=== PATIENT | male | born 1975 | race Caucasian/White ===

== ENCOUNTER → 2017-01-31 | Outpatient (CLI) | payer BC ==
[~2017-01-31] MED LIST: ATARAX25 MG PO; BACTRIM DS 8001 TA1 PO; CATAFLAM50 MG PO; CIPRO500 MG PO; CIPROFLOXACIN500 MG PO; CLARITIN10 MG PO; CORDROL20 MG PO; COUMADIN5 M2 PO; DAYPRO600 M1 PO; DELTASONE20 MG PO; DIAZEPAM2 MG PO; FLEXERIL5 MG PO; HYDROCODONE BIT1 T11 PO; KEFLEX500 MG PO; Lortab 5/500 501 TAB PO; MEDROL DOSEPAK4 MG PO; MOTRIN800 MG PO; PREDNICOT20 MG PO; PREDNISONE20 MG PO; PROTONIX TR40 M1 PO; ROBAXIN750 MG PO; SKELAXIN800 MG PO; TRAMADOL HCL50 MG PO; VICODIN 5/500 505 MG PO; VICODIN 500 MG-1 TAB PO; VOLTAREN50 M1 PO
== END | disposition home or self-care (01) ==
LOC: US 16:37
DX: M54.2 Cervicalgia (principal)

== ENCOUNTER 2017-03-08 12:24 | Emergency (ER) | payer BC ==
[~2017-03-08] VITALS: Ht 175.2 cm; Wt 95.3 kg
[2017-03-08] MEDS ORDERED: FLONASE ALLERG9.9 ML NAS (13:33)
[2017-03-08] MEDS ORDERED: PREDNISONE10 MG PO (13:33)
[2017-03-08] MEDS ORDERED: CLARITIN10 MG PO (13:33)
== END 2017-03-08 14:39 | disposition home or self-care (01) ==
LOC: ED 12:24
DX: J02.9 Acute pharyngitis, unspecified (principal); R03.0 Elevated blood-pressure reading, without diagnosis of hypertension; Z88.0 Allergy status to penicillin; Z79.899 Other long term (current) drug therapy

== ENCOUNTER → 2017-05-16 | Outpatient (CLI) | payer BC ==
[~2017-05-16] MED LIST changes: +FLONASE ALLERG9.9 ML NAS; +PREDNISONE10 MG PO
== END | disposition home or self-care (01) ==
LOC: RAD 07:50
DX: K21.9 Gastro-esophageal reflux disease without esophagitis (principal); R13.10 Dysphagia, unspecified

== ENCOUNTER → 2018-04-07 | Outpatient (CLI) | payer BC ==
[2018-04-07 10:52] LABS: HEMATOCRIT 49.6 % (42.0-52.0); HEMOGLOBIN 16.9 g/dl (14.0-18.0); MEAN CELL VOLUME 88.7 fl (80.0-94.0); MEAN CORPUSCULAR HGB 30.2 pg (27.0-31.0); MEAN CORPUSCULAR HGB CONC 34.1 g/dl (33.0-37.0); MEAN PLATELET VOLUME 9.5 fl (9.6-12.3); RED BLOOD COUNT 5.59 10*6/uL (4.50-5.90); RED CELL DISTRI WIDTH 12.5 % (0-14.5); WHITE BLOOD COUNT 5.5 10*3/uL (4.8-10.8)
[2018-04-07 11:21] LABS: ALBUMIN 4.1 gm/dl (3.1-4.5); ALKALINE PHOSPHATASE 70 U/L (45-117); BUN 10 mg/dl (7-24); CHLORIDE 106 mmol/L (98-107); CHOLESTEROL 160 mg/dL (<200); CREATININE 1.22 mg/dL (0.70-1.30); HDL CHOLESTEROL 45 mg/dl (40-60); LDL CHOLESTEROL 100 mg/dL (9-159); POTASSIUM 4.2 mmol/L (3.5-5.1); SGOT/AST 21 IU/L (3-35); SGPT/ALT 52 U/L (12-78); SODIUM 142 mmol/L (136-145); TOTAL PROTEIN 7.8 gm/dL (6.4-8.2); TRIGLYCERIDES 75 mg/dl (<150); VLDL CHOLESTEROL 15 mg/dL (6-40)
== END | disposition home or self-care (01) ==
LOC: LAB 10:29
PROVIDERS: Family Medicine
DX: E55.9 Vitamin D deficiency, unspecified (principal); E78.00 Pure hypercholesterolemia, unspecified; K62.5 Hemorrhage of anus and rectum; I82.409 Acute embolism and thrombosis of unspecified deep veins of unspecified lower extremity

== ENCOUNTER → 2018-04-16 | Outpatient (CLI) | payer BC ==
[2018-04-16 16:13] LABS: BILIRUBIN, DIRECT 0.2 mg/dL (0.0-0.2)
== END | disposition home or self-care (01) ==
LOC: LAB 15:05
PROVIDERS: Family Medicine
DX: E80.4 Gilbert syndrome (principal)

== ENCOUNTER → 2018-04-21 | Outpatient (CLI) | payer BC | END | disposition home or self-care (01) | LOC: LAB 15:04 | DX: R19.7 Diarrhea, unspecified (principal) ==

== ENCOUNTER 2018-05-28 17:07 | Emergency (ER) | payer BC ==
[~2018-05-28] VITALS: Ht 175.2 cm; Wt 99.8 kg
--- NOTE | ~2018-05-28 | EKG ---
[place], [place] ELECTROCARDIOGRAM REPORT NAME: BEA MORILLO UNIT #: [id number] ROOM: DOCTOR: EPIPHANY DRAFT REPORT BIRTHDATE: [birth year] [facility] Test Date: 2018-05-28 Test Time: 17:29:58 Pat Name: BEA MORILLO Department: Room: Gender: [employer]: Joann Mooney : 1975 Requested By: ELENI RAUSCH DNP Order Number: [id number] Reading MD: Romel Alvarez MD Measurements Intervals [place] Rate: 72 P: 17 [place]: 178 QRS: 49 QRSD: 107 T: 17 QT: 394 QTc: 432 Interpretive Statements Sinus rhythm RSR' in V1 or V2, right VCD or RVH Baseline wander in lead(s) V4 No previous ECG available for comparison Electronically Signed On 05-31-2018 4:40:58 PST by Romel Alvarez MD CM:EKGRPT:ELECTROCARDIOGRAM REPORT [id number] ELENI ALVAREZ DRAFT REPORT ELENI RAUSCH DNP
[2018-05-28] MEDS ORDERED: CYCLOBENZAPRINE10 MG PO (19:10)
== END 2018-05-28 19:21 | disposition home or self-care (01) ==
LOC: ED 17:07
DX: M25.512 Pain in left shoulder (principal); M62.838 Other muscle spasm; Z79.899 Other long term (current) drug therapy; Z88.0 Allergy status to penicillin; Z79.01 Long term (current) use of anticoagulants; Z86.718 Personal history of other venous thrombosis and embolism

== ENCOUNTER 2019-01-17 09:49 | Emergency (ER) | payer BC ==
[~2019-01-17] VITALS: Ht 175.2 cm; Wt 104.3 kg
[~2019-01-17 09:49] MED LIST changes: +CYCLOBENZAPRINE10 MG PO
== END 2019-01-17 12:02 | disposition home or self-care (01) ==
LOC: ED 09:49
DX: S90.31XA Contusion of right foot, initial encounter (principal); Z88.0 Allergy status to penicillin; Z79.01 Long term (current) use of anticoagulants; W11.XXXA Fall on and from ladder, initial encounter; Y93.39 Activity, other involving climbing, rappelling and jumping off; Y92.89 Other specified places as the place of occurrence of the external cause; Y99.8 Other external cause status

== ENCOUNTER 2019-05-04 06:44 | Emergency (ER) | payer BC ==
[~2019-05-04] VITALS: Ht 175.2 cm; Wt 104.3 kg
[2019-05-04] MEDS ORDERED: LISINOPRIL2.5 MG PO (07:29)
[2019-05-04 08:55] LABS: BILIRUBIN NEGATIVE (NEGATIVE); BLOOD 1+ (NEGATIVE); CLARITY SL CLOUDY (CLEAR); COLOR YELLOW (YELLOW); GLUCOSE NEGATIVE (NEGATIVE); KETONE 2+ (NEGATIVE); LEUKO ESTERASE NEGATIVE (NEGATIVE); NITRITE NEGATIVE (NEGATIVE); UROBILINOGEN 0.2 E.U./dl (0.2-1.0)
[2019-05-04 09:15] LABS: BACTERIA TRACE; URIC ACID CRYSTALS 1+
[2019-05-04] MEDS ORDERED: KETOROLAC10 MG PO (09:52)
[2019-05-04] MEDS ORDERED: ALLOPURINOL300 MG PO (09:52)
== END 2019-05-04 10:01 | disposition home or self-care (01) ==
LOC: ED 06:44
PROVIDERS: Emergency Medicine
DX: N20.0 Calculus of kidney (principal); J45.909 Unspecified asthma, uncomplicated; Z87.442 Personal history of urinary calculi; Z86.718 Personal history of other venous thrombosis and embolism; Z88.0 Allergy status to penicillin; Z79.01 Long term (current) use of anticoagulants; Z79.899 Other long term (current) drug therapy

== ENCOUNTER → 2020-02-10 | Outpatient (CLI) | payer BC ==
[~2020-02-10] MED LIST changes: +ALLOPURINOL300 MG PO; +KETOROLAC10 MG PO; +LISINOPRIL2.5 MG PO
[2020-02-10 16:10] LABS: HEMATOCRIT 47.3 % (42.0-52.0); MEAN CELL VOLUME 87.9 fl (80.0-94.0); MEAN CORPUSCULAR HGB 29.4 pg (27.0-31.0); MEAN CORPUSCULAR HGB CONC 33.4 g/dl (33.0-37.0); MEAN PLATELET VOLUME 9.6 fl (9.6-12.3); RED BLOOD COUNT 5.38 10*6/uL (4.50-5.90); RED CELL DISTRI WIDTH 12.8 % (0-14.5); WHITE BLOOD COUNT 6.6 10*3/uL (4.8-10.8)
[2020-02-10 16:31] LABS: ALBUMIN 4.2 gm/dl (3.1-4.5); BUN 9 mg/dl (7-24); CHLORIDE 110 mmol/L (98-107); CHOLESTEROL 190 mg/dL (<200); CREATININE 1.09 mg/dL (0.70-1.30); POTASSIUM 3.5 mmol/L (3.5-5.1); SGOT/AST 25 IU/L (3-35); SGPT/ALT 58 U/L (12-78); SODIUM 140 mmol/L (136-145); TRIGLYCERIDES 79 mg/dl (<150); VLDL CHOLESTEROL 16 mg/dL (6-40)
[2020-02-10 16:33] LABS: ALKALINE PHOSPHATASE 69 U/L (45-117); HDL CHOLESTEROL 49 mg/dl (40-60); INTERNATIONAL NORM RATIO 1.5 (2.0-3.5); LDL CHOLESTEROL 125 mg/dL (9-159); TOTAL PROTEIN 7.8 gm/dL (6.4-8.2)
== END | disposition home or self-care (01) ==
LOC: LAB 15:16
PROVIDERS: ATTEND Family Medicine
DX: Z51.81 Encounter for therapeutic drug level monitoring (principal); E78.00 Pure hypercholesterolemia, unspecified; I10 Essential (primary) hypertension; Z79.899 Other long term (current) drug therapy

== ENCOUNTER → 2020-02-23 | Outpatient (CLI) | payer BC ==
[2020-02-23 13:51] LABS: BILIRUBIN, DIRECT 0.3 mg/dL (0.0-0.2)
[2020-02-24 15:10] LABS: ANTI-SMOOTH MUSCLE ANTIBODY 4 Units (0-19)
== END | disposition home or self-care (01) ==
LOC: LAB 12:44
PROVIDERS: ATTEND Family Medicine
DX: E80.6 Other disorders of bilirubin metabolism (principal)

== ENCOUNTER 2020-04-10 17:32 | Emergency (ER) | payer BC ==
[~2020-04-10] VITALS: Ht 175.2 cm; Wt 104.3 kg
[2020-04-10 18:00] LABS: BILIRUBIN Negative (Negative); BLOOD Negative (Negative); CLARITY Clear (Clear); COLOR Yellow (Yellow); GLUCOSE Negative (Negative); KETONE Negative (Negative); LEUKO ESTERASE Negative (Negative); NITRITE Negative (Negative); PH 6.5 (4.5-8.0); SPECIFIC GRAVITY 1.015 (1.001-1.030); UROBILINOGEN 0.2 E.U./dl (0.0-1.0)
[2020-04-10 18:07] LABS: BACTERIA TRACE; EPITHELIAL CELLS 0-2; RBC 0-2 rbc/hpf (0-2); WBC 0-2 wbc/hpf (0-5)
[2020-04-10] MEDS ORDERED: ROBAXIN-750750 MG PO (20:01)
== END 2020-04-10 20:32 | disposition home or self-care (01) ==
LOC: ED 17:32
PROVIDERS: Emergency Medicine
DX: S29.011A Strain of muscle and tendon of front wall of thorax, initial encounter (principal); J45.909 Unspecified asthma, uncomplicated; Z88.0 Allergy status to penicillin; Z79.01 Long term (current) use of anticoagulants; Z79.899 Other long term (current) drug therapy; Z98.61 Coronary angioplasty status; Z87.442 Personal history of urinary calculi; Z86.718 Personal history of other venous thrombosis and embolism; X58.XXXA Exposure to other specified factors, initial encounter; Y93.89 Activity, other specified; Y92.89 Other specified places as the place of occurrence of the external cause; Y99.8 Other external cause status

== ENCOUNTER 2022-05-29 11:21 | Emergency (ER) | payer BC ==
[~2022-05-29] VITALS: Ht 175.2 cm; Wt 97.5 kg
[~2022-05-29 11:21] MED LIST changes: +ROBAXIN-750750 MG PO
[2022-05-29] MEDS ORDERED: NAPROSYN500 MG PO (13:08)
== END 2022-05-29 13:07 | disposition home or self-care (01) ==
LOC: ED 11:21
DX: S46.911A Strain of unspecified muscle, fascia and tendon at shoulder and upper arm level, right arm, initial encounter (principal); Z88.0 Allergy status to penicillin; Z98.890 Other specified postprocedural states; I11.0 Hypertensive heart disease with heart failure; I10 Essential (primary) hypertension; J45.909 Unspecified asthma, uncomplicated; Z86.718 Personal history of other venous thrombosis and embolism; X50.1XXA Overexertion from prolonged static or awkward postures, initial encounter; Y93.89 Activity, other specified; Y92.89 Other specified places as the place of occurrence of the external cause; Y99.8 Other external cause status